=== PATIENT | female | born 1995 | race Caucasian/White ===

== ENCOUNTER 2016-11-26 16:15 | Inpatient (IN) | payer OTHER ==
[~2016-11-26] VITALS: Ht 154.9 cm; Wt 76.9 kg
[~2016-11-26 16:15] MED LIST: ACET500C5 PO
[2016-11-26 16:31] VITALS: Ht 154.9 cm; Wt 76.9 kg
[2016-11-26] MEDS ORDERED: FOLI-49 PO (16:31)
[2016-11-26] MEDS ORDERED: FER325 PO (16:31)
[2016-11-26] MEDS ORDERED: CALC600T11 PO (16:31)
[2016-11-26] MEDS ORDERED: PREN1TAB13 PO (16:31)
[2016-11-26 16:35] VITALS: BP 140/79; PULSE 92; RESP 20
[2016-11-26 17:10] LABS: ADD SCAN DIFF NO
[2016-11-26 17:14] LABS: ADD UMIC YES; URINE BILIRUBIN (Dip) NEGATIVE (NEGATIVE); URINE BLOOD (Dip) NEGATIVE (NEGATIVE); URINE COLOR YELLOW (YELLOW); URINE GLUCOSE (Dip) NEGATIVE (NEGATIVE); URINE KETONES (Dip) TRACE (NEGATIVE); URINE LEUKOCYTE ESTERASE (Dip) TRACE (NEGATIVE); URINE NITRITE (Dip) NEGATIVE (NEGATIVE); URINE TOTAL PROTEIN (Dip) 1+ (NEGATIVE); URINE UROBILINOGEN (Dip) 1.0 E.U./dL (0.1-1.0)
[2016-11-26 17:16] LABS: BASOPHILS % 0.2 % (0.0-2.0); EOSINOPHILS % 0.4 % (0.0-7.0); HEMATOCRIT 27.9 % (37.0-47.0); HEMOGLOBIN 8.7 g/dl (12.0-16.0); LYMPHOCYTES # 1.5 10^3/ul (0.8-2.9); LYMPHOCYTES % 14.2 % (18.0-55.0); MEAN CORPUSCULAR HEMOGLOBIN 22.7 pg (29.0-33.0); MEAN CORPUSCULAR HGB CONC 31.2 g/dl (32.0-37.0); MEAN CORPUSCULAR VOLUME 72.8 fl (72.0-104.0); MEAN PLATELET VOLUME 11.2 fl (7.4-10.4); MONOCYTE # 0.5 10^3/ul (0.3-0.9); MONOCYTES % 4.7 % (0.0-13.0); NEUTROPHIL # 8.1 10^3/ul (1.6-7.5); PLATELET COUNT 131 10^3/UL (140-415); RED BLOOD COUNT 3.83 10^6/ul (4.20-5.40); RED CELL DISTRIBUTION WIDTH 15.6 % (11.5-14.5); WHITE BLOOD COUNT 10.2 10^3/ul (4.8-10.8)
[2016-11-26 17:44] LABS: BACTERIA,URINE MODERATE; MUCUS,URINE MANY; SQUAMOUS EPITHELIAL CELL,UR MANY; URINE RBCS NONE SEEN /HPF (0)
--- NOTE | 2016-11-26 18:05 | RADRPT ---
PROCEDURE: US OB biophysical profile. CLINICAL INDICATION: evaluation, high blood pressure TECHNIQUE: Multiple sonographic images of the pelvis were obtained. The images were reviewed on a PACS workstation. COMPARISON: Obstetrical ultrasound from 07/18/2016 FINDINGS: There is a single viable intrauterine gestation. Cardiac activity is present with 0.46 beats per mi nute. There is a vertex presentation. The placenta is posterior and fundal. There is no evidence of placental abruption. There is an elevated amount of amniotic fluid with an MELI = 24.5 cm. Biophysical profile: movement 2/2 tone 2/2. breathing 2/2 MELI 2/2 Total 05/25 RPTAT: AA . IMPRESSION: Normal biophysical profile. Polyhydramnios with an MELI of 24.5 cm. Physician Kat Date Time Electronically viewed and signed by Physician Kat on 11/26/2016 18:04 /
[2016-11-26 18:37] LABS: ALBUMIN 3.2 g/dl (3.3-4.9); POTASSIUM 4.4 mmol/L (3.5-5.1)
[2016-11-26 18:40] LABS: ALBUMIN/GLOBULIN RATIO 1.1
[2016-11-26 18:46] LABS: BILIRUBIN,INDIRECT 0.1 mg/dl (0-1.1); BILIRUBIN,TOTAL 0.1 mg/dl (0.2-1.3); CALCIUM 8.7 mg/dl (8.4-10.2); CREATININE 0.45 mg/dl (0.44-1.00); TOTAL PROTEIN 6.1 g/dl (6.1-8.1); URIC ACID 3.4 mg/dl (3.1-7.9)
--- NOTE | 2016-11-26 19:10 | TRIAGE ---
OB Triage Datetime Report Generated by CPN: 11/26/2016 19:09 Datetime: 11/26/2016 18:00 Stage of : OB Triage Maternal Assessment Level of Consciousness: Fully Conscious Labor Evaluation Frequency: OCCASIONAL Monitor Mode: External Duration (sec)2399: 60-80 Quality: Mild Resting Tone [place]: Relaxed Heart Rate FHR Baseline Rate: 135 Monitor Mode: External US Variability: Moderate 6-25 bpm Accelerations: 15X15 Decelerations: None Pain Assessment Pain Scale: 0 Pain Presence: None/Denies Pain Goal: 3 Vaginal Exam Membrane Status: Intact Vaginal Bleeding: None Datetime: 11/26/2016 17:00 Stage of : OB Triage Maternal Assessment Level of Consciousness: Fully Conscious Labor Evaluation Frequency: NONE Monitor Mode: External Resting Tone [place]: Relaxed Heart Rate FHR Baseline Rate: 145 Monitor Mode: External US Variability: Moderate 6-25 bpm Accelerations: 15X15 Decelerations: None Pain Assessment Pain Scale: 0 Pain Presence: None/Denies Pain Goal: 3 Vaginal Exam Membrane Status: Intact Vaginal Bleeding: None Datetime: 11/26/2016 16:29 Assessment Type: Triage Maternal Assessment Level of Consciousness: Fully Conscious DTR's/Clonus: DTRs 2+; No Clonus Headache: Denies Blurred Vision: No Respiratory Effort: Unlabored; Regular Rhythm; Equal Expansion Breath Sounds, Left: Clear and Equal Breath Sounds, Right: Clear and Equal Nausea/Vomiting: Denies RUQ Epigastric Pain: Denies Lower Extremities Edema: Bilateral Lower Extremities Degree: 1+ Upper Extremities Edema: None Degree: None Facial Edema: None Fall Risk Assessment History of Falling: (0) No Secondary Diagnosis: (0) No Ambulatory Aid: (0) Bedrest/Nurse Assist IV Therapy: (0) No Gait: (0) Normal/Bedrest/Immobile Mental Status: (0) Oriented to Own Ability Fall Score: 0 Fall Risk Score Definition: No Risk: No action required Datetime: 11/26/2016 16:25 EGA: 36.0 Datetime: 11/26/2016 16:24 Time of Arrival: 11/26/2016 16:10 Arrived By: Ambulatory Arrived From: Dr. Rich Chief Complaint: PT SENT FROM CLINIC FOR EVAL. OF HBP Movement: Present Contractions: Denies/Absent Rupture of Membranes: Denies Vaginal Bleeding: None Vaginal Discharge: Denies Recent Sexual Intercouse: Denies Abdominal Trauma: Not Applicable Patient Complaints: None Time Provider Notified: 11/26/2016 19:00 Provider Notified: GINGER Initial Plan: UA, CBC, CMP, URIC ACID, BPP
[2016-11-26] MEDS: LABETALOL 100 MG TAB PO SCH (21:17)
[2016-11-27 05:56] LABS: ADD SCAN DIFF NO
[2016-11-27 06:22] LABS: ABNORMAL IP MESSAGE 1; BASOPHILS % 0.2 % (0.0-2.0); EOSINOPHILS % 0.2 % (0.0-7.0); HEMATOCRIT 27.3 % (37.0-47.0); HEMOGLOBIN 8.2 g/dl (12.0-16.0); LYMPHOCYTES # 1.6 10^3/ul (0.8-2.9); LYMPHOCYTES % 14.8 % (18.0-55.0); MEAN CORPUSCULAR HEMOGLOBIN 22.2 pg (29.0-33.0); MEAN CORPUSCULAR VOLUME 73.8 fl (72.0-104.0); MEAN PLATELET VOLUME 12.4 fl (7.4-10.4); MONOCYTE # 0.4 10^3/ul (0.3-0.9); MONOCYTES % 3.6 % (0.0-13.0); NEUTROPHIL # 8.4 10^3/ul (1.6-7.5); NUCLEATED RED BLOOD CELLS% 0.2 /100WBC (0.0-0.0); PLATELET COUNT 133 10^3/UL (140-415); RED CELL DISTRIBUTION WIDTH 15.6 % (11.5-14.5); WHITE BLOOD COUNT 10.5 10^3/ul (4.8-10.8)
[2016-11-27 06:28] LABS: ALBUMIN 3.1 g/dl (3.3-4.9)
[2016-11-27 06:29] LABS: POTASSIUM 4.8 mmol/L (3.5-5.1)
[2016-11-27 06:31] LABS: ALBUMIN/GLOBULIN RATIO 1.1; BILIRUBIN,INDIRECT 0.2 mg/dl (0-1.1); BILIRUBIN,TOTAL 0.2 mg/dl (0.2-1.3); CREATININE 0.47 mg/dl (0.44-1.00); TOTAL PROTEIN 5.9 g/dl (6.1-8.1); URIC ACID 3.7 mg/dl (3.1-7.9)
[2016-11-27 06:32] LABS: CALCIUM 8.7 mg/dl (8.4-10.2)
[2016-11-27] MEDS: LABETALOL 100 MG TAB PO SCH ×2 (09:07→21:13)
[2016-11-27] MEDS ORDERED: ACETAMINOPHEN 325 MG TAB PO PRN (18:30)
[2016-11-27] MEDS: LACTATED RINGER'S 1,000 ML IV SCH (20:20)
[2016-11-27 21:11] LABS: COLLECTION PERIOD 24 hrs; SCRET 0.47 mg/dl (0.44-1.00)
--- NOTE | 2016-11-27 21:31 | HP ---
Date/Time of Note Date/Time of Note late entry DATE: 11/26/16 OB - History Hx of Present Free Text/Dictation sent in from clinic for BP of 120/90 at 36 weeks Estimated Due Date: Dec 24, 2016 : 1 Para: 0 Care: Good Care Ultrasounds: Normal mid trimester US Obstetrical Complications: None Medical Complications: None Past Family/Social History * Past Medical, Surgical, Family and Obstetric Histories reviewed from chart. OB Admission Exam Vital Signs Vital Signs Vital Signs Date Time Temp Pulse Resp B/P Pulse Ox O2 Delivery O2 Flow Rate FiO2 11/26/16 16:35 99.6 92 20 140/79 96 Room Air Physical Exam HEENT: WNL Heart: Rhythm Normal Lungs: Clear, Equal Abdomen: WNL Extremities: Normal Reflexes: Normal Last 72 hours Lab Results CBC & BMP 11/26/16 16:50 11/27/16 05:43 Liver Function Test 11/26/16 16:50 11/27/16 05:43 Alanine Aminotransferase (ALT/SGPT) 15 16 Albumin 3.2 L 3.1 L Alkaline Phosphatase 188 H 185 H Aspartate Amino Transf (AST/SGOT) 16 15 Direct Bilirubin 0.00 0.00 Total Protein 6.1 5.9 L OB Assessment/Plan Other Assessment: 36 weeks gestation PIH ( patient has 1 + proteinuria Other plan: obtain 24 hr urine collection for protein and creatinine clearance tian consult ANNE BECERRA MD Nov 27, 2016 21:31
--- NOTE | 2016-11-27 21:36 | PN ---
Date/Time of Note Date/Time of Note DATE: 11/27/16 TIME: 21:31 OB Subjective Subjective Subjective No C/O headache blurred vision or epigastric pain OB Objective Objective Objective VSS P/E:: unchanged BPs are between 140s/80s and 130s/ high 70s labs are the same, still has decreased platelets on admission from triage patient had BPs >160s/90s OB Assessment/Plan Other Assessment: PIH 36.1 weeks gestation Other plan: reconsult perinatologist re: possible delivery ANNE BECERRA MD Nov 27, 2016 21:36
[2016-11-28] MEDS: LACTATED RINGER'S 1,000 ML IV SCH ×2 (04:08→11:20)
[2016-11-28 06:41] LABS: ADD SCAN DIFF NO
[2016-11-28 07:57] LABS: HEMOGLOBIN 8.4 g/dl (12.0-16.0); MEAN CORPUSCULAR HEMOGLOBIN 22.9 pg (29.0-33.0); MEAN CORPUSCULAR HGB CONC 32.1 g/dl (32.0-37.0); MEAN CORPUSCULAR VOLUME 71.3 fl (72.0-104.0); PLATELET COUNT 128 10^3/UL (140-440); RED BLOOD COUNT 3.65 10^6/ul (4.20-5.40); RED CELL DISTRIBUTION WIDTH 17.2 % (11.5-14.5); WHITE BLOOD COUNT 9.5 10^3/ul (4.8-10.8)
[2016-11-28 07:58] LABS: BASOPHILS % 0.2 % (0.0-2.0); EOSINOPHILS % 0.5 % (0.0-7.0); LYMPHOCYTES % 16.7 % (18.0-55.0); MEAN PLATELET VOLUME 11.1 fl (7.4-10.4); MONOCYTES % 4.3 % (0.0-13.0); NEUTROPHILS % 78.3 % (30.0-74.0)
[2016-11-28 07:59] LABS: LYMPHOCYTES # 1.6 10^3/ul (0.8-2.9); MONOCYTE # 0.4 10^3/ul (0.3-0.9); NEUTROPHIL # 7.4 10^3/ul (1.6-7.5)
[2016-11-28] MEDS: LABETALOL 100 MG TAB PO SCH (08:56)
[2016-11-28] MEDS ORDERED: MULTIVIT/MIN/FOLATE/IRON/PREN TAB PO SCH (09:00)
[2016-11-28] MEDS ORDERED: FERROUS SULFATE (EC) 325 MG TAB PO SCH (09:00)
--- NOTE | 2016-11-28 15:16 | DS ---
Date/Time of Note Date/Time of Note DATE: 11/28/16 TIME: 15:15 Obstetrical Discharge Record Final Diagnosis Final Diagnosis: not delivered Other Final Diagnosis PIH at 36 + weeks Complications Preg induced Hypertension Condition on Discharge Physical Assessment Last Vitals: see nurses notes Voiding: Yes Bowel Movement: Yes Breast: Soft, non-tender, Filling Fundus: Other (Gravid ) Abdomen and Incision: soft bs + Gravid Episiotomy: NA Calf Tenderness: No Patient Condition: Good ANNE BECERRA MD Nov 28, 2016 15:16
--- NOTE | 2016-11-28 15:19 | PD.PPDC ---
GED INSTRUCTOR Discharge Instruction Provider Information Physician Information 21 y/o female admitted with PIH at 36 weeks proteinuria remains unknown as well as creatinine clearance(kab problems) Diagnosis Final Diagnosis: PIH at 36 weeks Condition Patient Condition: Good Diet Diet: Resume Regular Diet Activity/Restrictions Activity: Bedrest May Shower Restrictions: No Exercising No Lifting Nothing in the Vagina Follow-up Follow-up with Physician: 3, Day/Days Return to clinic for OB Instructions: Blurried Vision Headache Comment: and zltered mental status amd epigastric pain : refer to hospital immediately ANNE BECERRA MD Nov 28, 2016 15:19
== END 2016-11-28 16:50 | disposition home or self-care (01) | DRG 782 ==
LOC: OBT 16:15 → L-D 16:17 → OBT 19:00 → OBG 19:21
PROVIDERS: ADMIT Obstetrics & Gynecology; ATTEND Obstetrics & Gynecology
DX: O13.3 Gestational [pregnancy-induced] hypertension without significant proteinuria, third trimester (principal); Z3A.36 36 weeks gestation of pregnancy
CPT/HCPCS: 36415; 76818; 80053; 81001; 81003; 82575; 84156; 84560; 85025; G0463; J7120

== ENCOUNTER 2016-11-30 13:11 | Outpatient (CLI) | payer OTHER ==
[~2016-11-30] VITALS: Ht 154.9 cm; Wt 76.9 kg
[~2016-11-30 13:11] MED LIST changes: -ACET500C5 PO; +CALC600T11 PO; +FER325 PO; +FOLI-49 PO; +PREN1TAB13 PO
--- NOTE | 2016-11-30 13:54 | RADRPT ---
PROCEDURE: OB ultrasound for biophysical profile CLINICAL INDICATION: Biophysical profile. . Hypertension TECHNIQUE: Multiple sonographic images of the pelvis were obtained. Transabdominal view of the gr avid uterus are available for review. The images were reviewed on a PACS workstation. COMPARISON: OB ultrasound 11/26/2016 FINDINGS: Single intrauterine gestation. Presentation: cephalic. Placenta: Fundal breathing movement = 2/2 tone = 2/2 motion = 2/2 MELI = 2/2 MELI = 10.4 cm; previously measured 24.4 cm heart rate: 154 beats per minute IMPRESSION: Single intrauterine gestation. Biophysical profile 05/25 MELI = 10.4 cm; previously measured 24.4 cm RPTAT: AADD .Alexandro Marcial MD, Date Time Electronically viewed and signed by .Alexandro Marcial MD, on 11/30/2016 13:54 .B/
[2016-11-30 14:04] VITALS: Ht 154.9 cm; Wt 76.9 kg
[2016-11-30 14:05] VITALS: BP 118/69; PULSE 80; RESP 18
[2016-11-30 14:07] LABS: BASOPHILS % 0.3 % (0.0-2.0); EOSINOPHILS % 0.4 % (0.0-7.0); HEMATOCRIT 27.2 % (37.0-47.0); HEMOGLOBIN 8.9 g/dl (12.0-16.0); LYMPHOCYTES # 1.2 10^3/ul (0.8-2.9); LYMPHOCYTES % 12.8 % (18.0-55.0); MEAN CORPUSCULAR HEMOGLOBIN 23.2 pg (29.0-33.0); MEAN CORPUSCULAR HGB CONC 32.5 g/dl (32.0-37.0); MEAN CORPUSCULAR VOLUME 71.4 fl (72.0-104.0); MEAN PLATELET VOLUME 9.4 fl (7.4-10.4); MONOCYTE # 0.5 10^3/ul (0.3-0.9); MONOCYTES % 4.7 % (0.0-13.0); NEUTROPHIL # 7.8 10^3/ul (1.6-7.5); NEUTROPHILS % 81.8 % (30.0-74.0); PLATELET COUNT 133 10^3/UL (140-440); RED BLOOD COUNT 3.81 10^6/ul (4.20-5.40); RED CELL DISTRIBUTION WIDTH 17.5 % (11.5-14.5); UNCORRECTED WBC 9.6 10^3/ul (4.8-10.8); WHITE BLOOD COUNT 9.6 10^3/ul (4.8-10.8)
[2016-11-30 14:08] LABS: ADD UMIC YES; URINE BILIRUBIN (Dip) 1+ (NEGATIVE); URINE BLOOD (Dip) NEGATIVE (NEGATIVE); URINE COLOR YELLOW (YELLOW); URINE GLUCOSE (Dip) NEGATIVE (NEGATIVE); URINE KETONES (Dip) 15 (NEGATIVE); URINE LEUKOCYTE ESTERASE (Dip) NEGATIVE (NEGATIVE); URINE NITRITE (Dip) NEGATIVE (NEGATIVE); URINE TOTAL PROTEIN (Dip) 1+ (NEGATIVE); URINE UROBILINOGEN (Dip) 1.0 E.U./dL (0.1-1.0)
[2016-11-30 14:09] LABS: CONDITION 1; LH ANALYZER COMMENTS 1; SUSPECT 1
[2016-11-30 14:17] LABS: INR 0.93; PROTIME 12.5 Sec (12.2-14.2)
[2016-11-30 14:18] LABS: ALBUMIN 2.9 g/dl (3.3-4.9); PARTIAL THROMBOPLASTIN TIME 25.2 Sec (25.0-35.0); POTASSIUM 3.9 mmol/L (3.5-5.1)
[2016-11-30 14:20] LABS: CREATININE 0.51 mg/dl (0.44-1.00)
[2016-11-30 14:21] LABS: ALBUMIN/GLOBULIN RATIO 1.03; BILIRUBIN,INDIRECT 0.1 mg/dl (0-1.1); BILIRUBIN,TOTAL 0.1 mg/dl (0.2-1.3); TOTAL PROTEIN 5.7 g/dl (6.1-8.1); URIC ACID 3.7 mg/dl (3.1-7.9)
[2016-11-30 14:22] LABS: CALCIUM 8.6 mg/dl (8.4-10.2)
[2016-11-30 14:29] LABS: MUCUS,URINE MANY; SQUAMOUS EPITHELIAL CELL,UR MODERATE; URINE RBCS NONE SEEN /HPF (0)
[2016-11-30 14:32] LABS: ICTOTEST NEGATIVE (NEGATIVE)
--- NOTE | 2016-11-30 15:12 | QN ---
Documentation Comment 21 y/o female P0 seen in triage for F/U PIH at 36 + weeks patient is on Labetalol All labs NL: PLT: unchanged will repeat labs in 3 days and possibly proceed with induction ANNE BECERRA MD Nov 30, 2016 15:12
== END 2016-11-30 15:15 | disposition home or self-care (01) ==
LOC: OBT 13:11 → L-D 13:12 → OBT 15:15
PROVIDERS: ATTEND Obstetrics & Gynecology
DX: O13.3 Gestational [pregnancy-induced] hypertension without significant proteinuria, third trimester (principal); Z3A.36 36 weeks gestation of pregnancy
CPT/HCPCS: 36415; 76818; 80053; 81001; 84560; 85025; 85610; 85730; Z7500; 81003; G0463

== ENCOUNTER 2016-12-03 12:31 | Inpatient (IN) | payer OTHER ==
[~2016-12-03] VITALS: Ht 154.9 cm; Wt 78.5 kg
[2016-12-03] MEDS ORDERED: LABE200T25 PO (13:09)
[2016-12-03 13:11] VITALS: BP 138/87; PULSE 100; RESP 18
[2016-12-03 13:13] VITALS: Ht 154.9 cm; Wt 78.5 kg
[2016-12-03 14:01] LABS: BASOPHILS % 0.3 % (0.0-2.0); EOSINOPHILS % 0.4 % (0.0-7.0); HEMATOCRIT 29.3 % (37.0-47.0); HEMOGLOBIN 9.3 g/dl (12.0-16.0); LYMPHOCYTES # 1.3 10^3/ul (0.8-2.9); LYMPHOCYTES % 13.6 % (18.0-55.0); MEAN CORPUSCULAR HEMOGLOBIN 22.8 pg (29.0-33.0); MEAN CORPUSCULAR HGB CONC 31.9 g/dl (32.0-37.0); MEAN CORPUSCULAR VOLUME 71.5 fl (72.0-104.0); MEAN PLATELET VOLUME 10.1 fl (7.4-10.4); MONOCYTE # 0.4 10^3/ul (0.3-0.9); MONOCYTES % 4.4 % (0.0-13.0); NEUTROPHIL # 8.1 10^3/ul (1.6-7.5); NEUTROPHILS % 81.3 % (30.0-74.0); PLATELET COUNT 154 10^3/UL (140-440); RED BLOOD COUNT 4.09 10^6/ul (4.20-5.40); RED CELL DISTRIBUTION WIDTH 18.4 % (11.5-14.5); UNCORRECTED WBC 9.9 10^3/ul (4.8-10.8); WHITE BLOOD COUNT 9.9 10^3/ul (4.8-10.8)
[2016-12-03 14:02] LABS: ADD UMIC YES; URINE BILIRUBIN (Dip) NEGATIVE (NEGATIVE); URINE BLOOD (Dip) NEGATIVE (NEGATIVE); URINE COLOR YELLOW (YELLOW); URINE GLUCOSE (Dip) NEGATIVE (NEGATIVE); URINE KETONES (Dip) NEGATIVE (NEGATIVE); URINE LEUKOCYTE ESTERASE (Dip) NEGATIVE (NEGATIVE); URINE NITRITE (Dip) NEGATIVE (NEGATIVE); URINE TOTAL PROTEIN (Dip) 1+ (NEGATIVE); URINE UROBILINOGEN (Dip) 0.2 E.U./dL (0.1-1.0)
[2016-12-03 14:07] LABS: CONDITION 1; LH ANALYZER COMMENTS 1
[2016-12-03 14:10] LABS: ALBUMIN 3.2 g/dl (3.3-4.9)
[2016-12-03 14:11] LABS: POTASSIUM 4.3 mmol/L (3.5-5.1)
[2016-12-03 14:13] LABS: BACTERIA,URINE FEW; BILIRUBIN,INDIRECT 0.3 mg/dl (0-1.1); BILIRUBIN,TOTAL 0.3 mg/dl (0.2-1.3); CREATININE 0.45 mg/dl (0.44-1.00); MUCUS,URINE FEW; TOTAL PROTEIN 6.2 g/dl (6.1-8.1); URINE RBCS 0-2 /HPF (0)
[2016-12-03 14:14] LABS: CALCIUM 8.8 mg/dl (8.4-10.2); URIC ACID 3.6 mg/dl (3.1-7.9)
[2016-12-03 14:16] LABS: ALBUMIN/GLOBULIN RATIO 1.06
--- NOTE | 2016-12-03 14:18 | RADRPT ---
PROCEDURE: US OB biophysical profile. CLINICAL INDICATION: decreased movements, hypertension TECHNIQUE: Multiple sonographic images of the pelvis were obtained. The images were reviewed on a PACS workstation. COMPARISON: 11/30/2016 FINDINGS: There is a single viable intrauterine gestation. Cardiac activity is present with 142 beats per min [place]. There is a vertex presentation. The placenta is fundal. There is no evidence of placental abruption. There is a normal amount of amniotic fluid with an MELI = 10.8 cm. Biophysical profile: movement 2/2 tone 2/2. breathing 2/2 MELI 2/2 Total 05/25 RPTAT: AA . IMPRESSION: Normal biophysical profile. . .Diego Aguilera MD, MD Date Time Electronically viewed and signed by .Diego Aguilera MD, MD on 12/03/2016 14:17 .S/
[2016-12-03 14:23] LABS: INR 1.01; PARTIAL THROMBOPLASTIN TIME 24.7 Sec (25.0-35.0); PROTIME 13.3 Sec (12.2-14.2)
[2016-12-03] MEDS ORDERED: CARBOPROST 250 MCG INJ IM PRN (15:30)
[2016-12-03] MEDS ORDERED: IBUPROFEN 600 MG TAB PO PRN (15:30)
[2016-12-03] MEDS ORDERED: LACTATED RINGER'S 1,000 ML IV PRN (15:30)
[2016-12-03] MEDS ORDERED: OXYTOCIN 30 UNITS/LR 500 ML IV SCH ×2 (15:30)
[2016-12-03] MEDS ORDERED: OXYTOCIN 30 UNITS/LR 500 ML IV PRN (15:30)
[2016-12-03] MEDS ORDERED: MISOPROSTOL 200 MCG TAB PR PRN (15:30)
[2016-12-03] MEDS ORDERED: METHYLERGONOVINE 0.2 MG INJ IM PRN (15:30)
[2016-12-03] MEDS ORDERED: LIDOCAINE 1% (MPF) 30 ML INJ INJ PRN (15:30)
--- NOTE | 2016-12-03 18:25 | HP ---
Date/Time of Note Date/Time of Note DATE: 12/03/16 TIME: 18:19 OB - History Hx of Present Free Text/Dictation admitted for induction of the labor at 37 weeks per perinatologist Estimated Due Date: Dec 24, 2016 : 1 Para: 0 Care: Good Care Ultrasounds: Normal mid trimester US Obstetrical Complications: None Medical Complications: None Past Family/Social History * Past Medical, Surgical, Family and Obstetric Histories reviewed from chart. Rubella: immune RPR/VDRL: Negative GBS Status: Negative HBsAG: Negative OB Admission Exam Vital Signs Vital Signs Vital Signs Date Time Temp Pulse Resp B/P Pulse Ox O2 Delivery O2 Flow Rate FiO2 12/03/16 13:11 98.6 100 18 138/87 Room Air Physical Exam HEENT: WNL Heart: Rhythm Normal Lungs: Clear, Equal Abdomen: WNL Extremities: Normal Reflexes: Normal Cervical Dilatation: None Effacement: 0% Station: -3 Membranes: Intact Accelerations: Accelerations Present Decelerations: No Decelerations Varibility: Moderate Contractions on Admission: None Last 72 hours Lab Results CBC & BMP 12/03/16 13:35 Liver Function Test 12/03/16 13:35 Alanine Aminotransferase (ALT/SGPT) 22 Albumin 3.2 L Alkaline Phosphatase 186 H Aspartate Amino Transf (AST/SGOT) 15 Direct Bilirubin 0.00 Total Protein 6.2 OB Assessment/Plan Other Assessment: mild PIH at 37 weeks Induction Method: per Misoprostol Protocol ANNE BECERRA MD Dec 03, 2016 18:25
[2016-12-03] MEDS ORDERED: DINOPROSTONE 10 MG VAG SUPP VAG ONE (19:00)
[2016-12-03] MEDS: LACTATED RINGER'S 1,000 ML IV SCH (20:20)
[2016-12-03] MEDS ORDERED: MINERAL OIL LIGHT 10 ML VIAL TOP PRN (21:30)
[2016-12-04] MEDS: LACTATED RINGER'S 1,000 ML IV SCH ×4 (01:16→21:54)
[2016-12-04] MEDS: BUTORPHANOL 2 MG INJ IV PRN ×2 (05:28→16:58)
[2016-12-05] MEDS: OXYTOCIN 30 UNITS/LR 500 ML IV SCH ×2 (02:55→21:17)
[2016-12-05] MEDS ORDERED: FENTAnyl 2MCG/ML-ROPIV 0.2% 100 ML ONE (05:34)
[2016-12-05] MEDS: LACTATED RINGER'S 1,000 ML IV SCH ×5 (05:48→19:00)
[2016-12-05] MEDS ORDERED: NALOXONE (0.4 MG/ML) INJ IV PRN (10:00)
[2016-12-05] MEDS ORDERED: ONDANSETRON 4 MG INJ IV PRN (10:00)
[2016-12-05] MEDS ORDERED: DINOPROSTONE 10 MG VAG SUPP VAG ONE (10:00)
[2016-12-05] MEDS ORDERED: DIPHENHYDRAMINE 50 MG INJ IV PRN (10:00)
[2016-12-05] MEDS: FENTAnyl 2MCG/ML-ROPIV 0.2% 100 ML BAG EPI SCH ×2 (12:49→19:46)
--- NOTE | 2016-12-05 23:21 | PN ---
Date/Time of Note Date/Time of Note late entry DATE: 12/04/16 OB Subjective Subjective Subjective No C/O headache , BV or epigastric pain OB Objective Objective Objective BPs stable or slightly elevated HEENT: WNL Heart: Rhythm Normal Lungs: Clear, Equal Abdomen: WNL Extremities: Normal Reflexes: Normal Cervical Dilatation: 1cm Effacement: 25% Station: -3 Membranes: Intact OB Assessment/Plan Other Assessment: [facility] at37 + weeks Induction Method: per Misoprostol Protocol ANNE BECERRA MD Dec 05, 2016 23:21
--- NOTE | 2016-12-05 23:22 | PN ---
Date/Time of Note Date/Time of Note DATE: 12/05/16 TIME: 23:21 OB Subjective Subjective Subjective No C/O H/A B/V or epigastric pain OB Objective Objective Objective VSS P/E unchanged HEENT: WNL Heart: Rhythm Normal Lungs: Clear, Equal Abdomen: WNL Extremities: Normal Reflexes: Normal Cervical Dilatation: 2cm Effacement: 50% Station: -2 Membranes: Intact OB Assessment/Plan Other Assessment: PIH at 37 + weeks Induction Method: per Pitocin Protocol ANNE BECERRA MD Dec 05, 2016 23:22
[2016-12-06] MEDS ORDERED: MINERAL OIL LIGHT 10 ML VIAL TOP ONE (00:23)
[2016-12-06] MEDS: FENTAnyl 2MCG/ML-ROPIV 0.2% 100 ML BAG EPI SCH (00:47)
--- NOTE | 2016-12-06 03:00 | LDN ---
Date/Time of Note Date/Time of Note DATE: 12/06/16 TIME: 02:56 Delivery Summary of a viable over intact perineum Placenta Delivered: Spontaneously, Intact & Complete Meconium: none Perineum intact?: Yes Perineal laceration repair: 2 X small hymenal lacerations were repaired with 3 0 Vicryl Anesthesia type: Epidural Estimated blood loss: 200 Sponge & Needle done & correct: Yes All needle counts correct: Yes Any foreign bodies felt in the: No Problems: Delivery Information Sex Infant Sex: female Apgars 1 Minute: 8 5 Minute: 9 Suctioning Nose & mouth suctioned at tian: Yes Delee suction performed: No Umbilical Cord Umbilical cord with: 3 Vessels Cord presentations: no nuchal cord Cord Blood was obtained: Yes Mother & Baby Disposition Disposition Mom & Baby to Maternity; Good: Yes (mother and baby were recovered in good condition ) Mom transferred to: Other (maternity) Baby to NICU: No ANNE BECERRA MD Dec 06, 2016 02:59
[2016-12-06 04:45] VITALS: BP 129/79; PULSE 83; RESP 20
[2016-12-06] MEDS: LACTATED RINGER'S 1,000 ML IV* SCH ×2 (05:13→07:19)
[2016-12-06 05:15] VITALS: BP 130/79; PULSE 76; RESP 20
[2016-12-06] MEDS ORDERED: OXYTOCIN 30 UNITS/LR 500 ML IV PRN (05:30)
[2016-12-06] MEDS ORDERED: ACETAMINOPHEN/CODEINE #3 TAB PO PRN ×2 (05:30)
[2016-12-06] MEDS ORDERED: METHYLERGONOVINE 0.2 MG INJ IM PRN (05:30)
[2016-12-06] MEDS ORDERED: DIBUCAINE 1% 30 GM OINT PR PRN (05:30)
[2016-12-06] MEDS ORDERED: LANOLIN 7 GM TUBE TOP PRN (05:30)
[2016-12-06] MEDS ORDERED: MISOPROSTOL 200 MCG TAB PR PRN (05:30)
[2016-12-06] MEDS ORDERED: WITCH HAZEL/GLYCERIN PAD PR PRN (05:30)
[2016-12-06] MEDS ORDERED: BENZOCAINE 20% 56 ML SPRAY TOP PRN (05:30)
[2016-12-06] MEDS ORDERED: CARBOPROST 250 MCG INJ IM PRN (05:30)
[2016-12-06] MEDS ORDERED: ZOLPIDEM 5 MG TAB PO PRN (05:30)
[2016-12-06] MEDS: IBUPROFEN 600 MG TAB PO SCH ×4 (05:51→23:52)
[2016-12-06] MEDS: CEPHALEXIN 500 MG CAP PO SCH ×4 (06:30→23:52)
[2016-12-06 07:00] VITALS: BP 131/75; PULSE 75; RESP 20
[2016-12-06 07:40] VITALS: BP 130/71; PULSE 70; RESP 16
[2016-12-06] MEDS: SENNA/DOCUSATE NA (8.6MG/50MG) TAB PO SCH ×2 (09:11→21:44)
[2016-12-06] MEDS: MAGNESIUM HYDROXIDE 30ML CUP PO SCH ×2 (09:11→21:44)
[2016-12-06 15:30] VITALS: BP 109/70; PULSE 60; RESP 16
[2016-12-06 20:05] VITALS: BP 126/84; PULSE 75; RESP 18
[2016-12-07 00:10] VITALS: BP 122/76; PULSE 70; RESP 18
[2016-12-07 04:15] VITALS: BP 121/80; PULSE 75; RESP 17
[2016-12-07] MEDS: CEPHALEXIN 500 MG CAP PO SCH ×3 (05:16→18:11)
[2016-12-07] MEDS: IBUPROFEN 600 MG TAB PO SCH ×3 (05:16→18:11)
[2016-12-07 07:34] LABS: BASOPHILS % 0.3 % (0.0-2.0); EOSINOPHILS # 0.1 10^3/ul (0.0-0.5); EOSINOPHILS % 0.8 % (0.0-7.0); HEMATOCRIT 24.8 % (37.0-47.0); HEMOGLOBIN 8.1 g/dl (12.0-16.0); LYMPHOCYTES % 20.7 % (18.0-55.0); MEAN CORPUSCULAR HEMOGLOBIN 23.1 pg (29.0-33.0); MEAN CORPUSCULAR HGB CONC 32.6 g/dl (32.0-37.0); MEAN CORPUSCULAR VOLUME 70.8 fl (72.0-104.0); MEAN PLATELET VOLUME 10.8 fl (7.4-10.4); MONOCYTE # 0.4 10^3/ul (0.3-0.9); MONOCYTES % 4.6 % (0.0-13.0); NEUTROPHIL # 7.2 10^3/ul (1.6-7.5); NEUTROPHILS % 73.6 % (30.0-74.0); PLATELET COUNT 117 10^3/UL (140-440); RED CELL DISTRIBUTION WIDTH 18.4 % (11.5-14.5); UNCORRECTED WBC 9.8 10^3/ul (4.8-10.8); WHITE BLOOD COUNT 9.8 10^3/ul (4.8-10.8)
[2016-12-07 07:39] LABS: CONDITION 1; SUSPECT 1
[2016-12-07 07:40] LABS: LH ANALYZER COMMENTS 1
[2016-12-07 08:00] VITALS: BP 131/81; PULSE 70; RESP 20
[2016-12-07] MEDS: MAGNESIUM HYDROXIDE 30ML CUP PO SCH ×2 (09:00→21:00)
[2016-12-07] MEDS: SENNA/DOCUSATE NA (8.6MG/50MG) TAB PO SCH ×2 (09:00→21:00)
--- NOTE | 2016-12-07 15:58 | DS ---
Date/Time of Note Date/Time of Note home next day DATE: 12/07/16 TIME: 15:57 Obstetrical Discharge Record Final Diagnosis Final Diagnosis: Term delivered Other Final Diagnosis S/P vaginal delivery Vaginal Delivery Obstetrical Delivery: Spontaneous, Laceration, Repaired Complications Augmentation: Yes Induction: Yes Condition on Discharge Physical Assessment Last Vitals: see nurses notes Voiding: Yes Bowel Movement: Yes Breast: Soft, non-tender, Filling Fundus: Firm Abdomen and Incision: soft bs + Episiotomy: NA Calf Tenderness: No Patient Condition: Good ANNE BECERRA MD Dec 07, 2016 15:58
--- NOTE | 2016-12-07 15:59 | PD.PPDC ---
FINANCIAL SOLUTIONS ADVISOR Discharge Instruction Provider Information Physician Information 31 y/o female had induction of the labor because of PIH and had vaginal delivery Condition Patient Condition: Good Diet Diet: Resume Regular Diet Activity/Restrictions Activity: Normal Activity May Shower Restrictions: Nothing in the Vagina Follow-up Follow-up with Physician: 4, Week/Weeks Return to clinic for OB Instructions: Breast Tenderness Depression ANNE BECERRA MD Dec 07, 2016 15:59
[2016-12-07 16:00] VITALS: BP 140/80; PULSE 96; RESP 17
[2016-12-07] MEDS ORDERED: IBUP-1542 PO (16:00)
[2016-12-07 19:30] VITALS: BP 139/77; PULSE 69; RESP 18
[2016-12-08] MEDS: CEPHALEXIN 500 MG CAP PO SCH ×3 (00:16→12:52)
[2016-12-08] MEDS: IBUPROFEN 600 MG TAB PO SCH ×3 (00:16→12:52)
[2016-12-08 04:00] VITALS: BP 122/67; PULSE 62; RESP 18
[2016-12-08 08:55] VITALS: BP 135/82; PULSE 69; RESP 20
[2016-12-08] MEDS ORDERED: DIPHTH/TET/ACEL PERTUSS (ADULT) 0.5 ML VIAL IM* ONE (09:00)
[2016-12-08] MEDS ORDERED: MEASLES,MUMPS,RUBELLA VACCINE INJ SC* ONE (09:00)
[2016-12-08] MEDS ORDERED: VARICELLA VACCINE LIVE/PF 1,350 UNIT/0.5 ML ML SC* ONE (09:00)
[2016-12-08] MEDS: SENNA/DOCUSATE NA (8.6MG/50MG) TAB PO SCH (09:00)
[2016-12-08] MEDS: MAGNESIUM HYDROXIDE 30ML CUP PO SCH (09:00)
== END 2016-12-08 14:00 | disposition home or self-care (01) | DRG 989 ==
LOC: L-D 12:31 → OBT 12:31 → L-D 16:30 → OBT 16:30 → L-D 12-04 12:00 → PP1 12-06 04:57
PROVIDERS: ADMIT Obstetrics & Gynecology; ATTEND Obstetrics & Gynecology
PROC: 10E0XZZ Delivery of Products of Conception, External Approach (ICD-10-PCS; principal; 2016-12-06)
PROC: 0UQKXZZ Repair Hymen, External Approach (ICD-10-PCS; 2016-12-06)
DX: O70.0 First degree perineal laceration during delivery (principal); Z37.0 Single live birth; E66.01 Morbid (severe) obesity due to excess calories; O99.214 Obesity complicating childbirth; Z68.32 Body mass index [BMI] 32.0-32.9, adult; Z3A.37 37 weeks gestation of pregnancy
CPT/HCPCS: 62319; 76818; 80053; 81001; 81003; 84560; 85025; 85384; 85610; 85730; 86592; 86850; 86900; 86901; 86920; 87340; 90715; 90716; G0463; J2405; J2590; J3010; J7120

== ENCOUNTER 2017-09-02 20:29 | Emergency (ER) | payer MEDICAID, OTHER ==
[~2017-09-02] VITALS: Ht 157.5 cm; Wt 77.6 kg
[~2017-09-02 20:29] MED LIST changes: -CALC600T11 PO; +CALC600T24 PO; +IBUP-1542 PO; +LABE200T25 PO
[2017-09-02 20:33] VITALS: Ht 157.5 cm; Wt 77.6 kg
--- NOTE | 2017-09-02 22:34 | ERD ---
ER Documentation Chief Complaint Chief Complaint BIB SELF C/O MID STERNAL CHEST PAIN X 1 WEEK. HPI 22-year-old female presents here in emergency department for complaints of chest pain that started 1 week ago, has been having on and off chest pain, started again today. Patient describes the pain as throbbing pain, 6/10 scale, worse upon taking a deep breath. Patient denies any cough shortness breath or wheezing. ROS All systems reviewed and are negative except as per history of present illness. Medications Home Meds Active Scripts Ibuprofen* (Ibuprofen*) 600 Mg Tablet, 600 MG PO Q6, #20 TAB 1 Refill Prov:ANNE BECERRA MD 12/07/16 Reported Medications Labetalol Hcl* (Labetalol Hcl*) 200 Mg Tablet, 200 MG PO BID, TAB 12/03/16 Folic Acid* (Folic Acid*) 1 Mg Tablet, 1 MG PO DAILY, TAB 11/26/16 Calcium Carbonate* (Calcium Carbonate*) 600 MG Ca Tab, 600 MG PO DAILY, TAB 11/26/16 Ferrous Sulfate* (Ferrous Sulfate*) 325 Mg Tabec, 325 MG PO DAILY, TAB 11/26/16 Pnv95/Ferrous Fumarate/FA ( Vitamins Tablet) 1 Each Tablet, 1 EACH PO DAILY, TAB 11/26/16 Allergies Allergies: Coded Allergies: No Known Allergy (Unverified , 11/30/16) PMhx/Soc Medical and Surgical Hx: pt denies Medical Hx, pt denies Surgical Hx Hx Alcohol Use: No Hx Substance Use: No Hx Tobacco Use: No Smoking Status: Never smoker FmHx Family History: No coronary disease, No diabetes, No other Physical Exam Vitals Vital Signs Date Time Temp Pulse Resp B/P Pulse Ox O2 Delivery O2 Flow Rate FiO2 09/02/17 20:33 99.3 75 20 142/83 99 Physical Exam GENERAL: The patient is well developed and appropriate for usual state of health, in no apparent distress. CHEST: Clear to auscultation bilaterally. There are no rales, wheezes or rhonchi. Tenderness on palpation in mid chest wall. HEART: Regular rate and rhythm. No murmurs, clicks, rubs or gallops. No S3 or S4. ABDOMEN: Soft, nontender and nondistended. Good bowel sounds. No rebound or guarding. No gross peritonitis. No gross organomegaly or masses. No Richardson sign or McBurney point tenderness. BACK: No midline or flank tenderness. EXTREMITIES: Equal pulses bilaterally. There is no peripheral clubbing, cyanosis or edema. No focal swelling or erythema. Full range of motion. Grossly neurovascularly intact. NEURO: Alert and oriented. Cranial nerves 2-12 intact. Motor strength in all 4 extremities with 5/5 strength. Sensation grossly intact. Normal speech and gait. SKIN: There is no apparent rash or petechia. The skin is warm and dry. HEMATOLOGIC AND LYMPHATIC: There is no evidence of excessive bruising or lymphedema. No gross cervical, axillary, or inguinal lymphadenopathy. Results 24 hrs EKG was done, read by me and is normal sinus rhythm at a rate of 81, normal axis , there is no ST changes or changes in the EKG that indicates any cardiac emergencies at this time. Patient's EKG was also reviewed by Dr. Brar. Impression: no acute findings on EKG PROCEDURE: XR Chest. CLINICAL INDICATION: CHEST PAIN TECHNIQUE: Single frontal view of the chest was obtained COMPARISON: None FINDINGS: The heart and mediastinum are within normal limits. The lungs are clear. There is no pleural effusion or pneumothorax. The osseous structures are unremarkable. IMPRESSION: 1. No acute cardiopulmonary disease. RPTAT:AAJJ Physician [employer] Date Time Electronically viewed and signed by Physician [employer] on 09/02/2017 22:46 QL/ CC: EFFIE NIEVES CYBER ANALYST Procedures/MDM Medical Decision Making: Symptoms most likely is consistent with chest wall strain. There is low suspicion for cardiopulmonary emergencies at this time. Patient has low risk factors. EKG is normal, there is no changes in the EKG that indicates cardiac emergencies. Chest X-ray does not show cardiopulmonary emergencies at this time. There is low suspicion for aortic aneurysm, myocardial infarction, pneumothorax, pleural effusion, pulmonary embolism, or any other cardiopulmonary emergencies at this time. Patient is given prescription for ibuprofen for [id number] pain, tramadol for severe pain, is advised to follow-up with 3 days for reevaluation of symptoms. Patient is advised to return to emergency department for any worsening symptoms. Dispostion: Home. Stable Disclaimer: Inadvertent spelling and grammatical errors are likely due to EHR/ dictation software use and do not reflect on the overall quality of patient care. Also, please note that the electronic time recorded on this note does not necessarily reflect the actual time of the patient encounter. Departure Diagnosis: Primary Impression: Chest wall muscle strain Encounter type: initial encounter Qualified Code: S29.011A - Muscle strain of chest wall, initial encounter Condition: Stable Patient Instructions: Chest Wall Pain, Costochondritis (/Toddler) EFFIE NIEVES NP Sep 02, 2017 22:34
--- NOTE | 2017-09-02 22:46 | RADRPT ---
PROCEDURE: XR Chest. CLINICAL INDICATION: CHEST PAIN TECHNIQUE: Single frontal view of the chest was obtained COMPARISON: None FINDINGS: The heart and mediastinum are within normal limits. The lungs are clear. There is no pleural effusion or pneumothorax. The osseous structures are unremarkable. IMPRESSION: 1. No acute cardiopulmonary disease. RPTAT:AAJJ Physician [employer] Date Time Electronically viewed and signed by Cindy Pearce Physician on 09/02/2017 22:46 QL/
[2017-09-02] MEDS ORDERED: IBUP-1542 PO (23:13)
[2017-09-02] MEDS ORDERED: TRAM50TA2 PO (23:13)
== END 2017-09-02 23:36 | disposition home or self-care (01) ==
LOC: FTE 20:29
DX: S29.011A Strain of muscle and tendon of front wall of thorax, initial encounter (principal); R07.2 Precordial pain; X58.XXXA Exposure to other specified factors, initial encounter; Y92.9 Unspecified place or not applicable
CPT/HCPCS: 71010; Z7502

== ENCOUNTER 2018-12-12 17:06 | Emergency (ER) | payer MEDICAID ==
[~2018-12-12] VITALS: Ht 154.9 cm; Wt 80.0 kg
[~2018-12-12 17:06] MED LIST changes: +TRAM50TA2 PO
[2018-12-12 17:57] VITALS: Ht 154.9 cm; Wt 80.0 kg
[2018-12-12] MEDS ORDERED: AMOX500C2 PO (20:23)
[2018-12-12] MEDS ORDERED: IBUP800T48 PO (20:23)
[2018-12-12] MEDS ORDERED: AMOXICILLIN 500 MG CAP PO ONE (20:30)
[2018-12-12] MEDS ORDERED: IBUPROFEN 600 MG TAB PO ONE (20:30)
[2018-12-12 20:40] VITALS: BP 135/91; PULSE 108; RESP 22
--- NOTE | 2018-12-13 00:37 | ERD ---
ER Documentation Chief Complaint Chief Complaint BILATERAL EAR PAIN, THROAT PAIN X TODAY HPI 23-year-old female presents to the ED complaining of bilateral ear pain, she rates it moderate to severe. Admits to congestion and sore throat that started today. Denies any fevers. Denies any medications. Cough ROS All systems reviewed and are negative except as per history of present illness. Medications Home Meds Active Scripts Ibuprofen* (Motrin*) 800 Mg Tab, 800 MG PO Q6H PRN for PAIN AND OR ELEVATED TEMP, #30 TAB Prov:STEPHEN NATION PA-C 12/12/18 Amoxicillin* (Amoxicillin*) 500 Mg Cap, 500 MG PO TID for 10 Days, CAP Prov:STEPHEN NATION PA-C 12/12/18 Tramadol HCl (Tramadol HCl) 50 Mg Tablet, 50 MG PO Q6 PRN for SEVERE PAIN LEVEL 7-10, #20 TAB Prov:EFFIE NIEVES NP 09/02/17 Ibuprofen* (Motrin*) 600 Mg Tab, 600 MG PO Q6H PRN for PAIN AND OR ELEVATED TEMP, #30 TAB Prov:EFFIE NIEVES NP 09/02/17 Ibuprofen* (Ibuprofen*) 600 Mg Tablet, 600 MG PO Q6, #20 TAB 1 Refill Prov:ANNE BECERRA MD 12/07/16 Reported Medications Labetalol Hcl* (Labetalol Hcl*) 200 Mg Tablet, 200 MG PO BID, TAB 12/03/16 Folic Acid* (Folic Acid*) 1 Mg Tablet, 1 MG PO DAILY, TAB 11/26/16 Calcium Carbonate* (Calcium Carbonate*) 600 MG Ca Tab, 600 MG PO DAILY, TAB 11/26/16 Ferrous Sulfate* (Ferrous Sulfate*) 325 Mg Tabec, 325 MG PO DAILY, TAB 11/26/16 Pnv95/Ferrous Fumarate/FA ( Vitamins Tablet) 1 Each Tablet, 1 EACH PO DAILY, TAB 11/26/16 Allergies Allergies: Coded Allergies: No Known Allergy (Unverified , 11/30/16) PMhx/Soc Medical and Surgical Hx: pt denies Medical Hx, pt denies Surgical Hx Hx Alcohol Use: No Hx Substance Use: No Hx Tobacco Use: No Smoking Status: Never smoker Physical Exam Vitals Vital Signs Date Temp Pulse Resp B/P (MAP) Pulse Ox O2 O2 Flow FiO2 Time Delivery Rate 12/12/18 97.9 108 22 135/91 98 Room Air 20:40 (106) 12/12/18 99.1 93 18 131/92 98 17:57 (105) Physical Exam Const: No acute distress Head: Atraumatic Eyes: Normal Conjunctiva ENT: Normal External Ears, Nose and Mouth. Bilateral TMs are bulging with effusion Neck: Full range of motion. No meningismus. Resp: Clear to auscultation bilaterally Cardio: Regular rate and rhythm, no murmurs Abd: Soft, non tender, non distended. Normal bowel sounds Skin: No petechiae or rashes Back: No midline or flank tenderness Ext: No cyanosis, or edema Neur: Awake and alert Psych: Normal Mood and Affect Results 24 hrs Current Medications Medications Dose Sig/Froy Start Time Status Last (Trade) Ordered Route PRN Stop Time Admin Dose Reason Admin Amoxicillin 500 mg ONCE ONCE 12/12/18 DC 12/12/18 PO 20:30 20:27 (Amoxicillin) 12/12/18 20:31 Ibuprofen 600 mg ONCE ONCE 12/12/18 DC 12/12/18 (Motrin) PO 20:30 20:28 12/12/18 20:31 Procedures/MDM This is a 23-year-old female presenting to the ED complaining of bilateral ear pain. Signs is consistent with otitis media. Patient was given prescription for amoxicillin. Patient first dose was given in the ED.. There is no evidence of ruptured to make membrane, mastoiditis. Patient afebrile and stable to be discharged home with return precautions. She understands agrees this plan Departure Diagnosis: Primary Impression: Otitis media Condition: Stable Patient Instructions: Otitis Media, Abx Tx (Adult) Additional Instructions: FOLLOW UP WITH YOUR PRIMARY CARE PHYSICIAN TOMORROW.Return to this facility if you are not improving as expected. Take all medicines as directed. Return to this facility if you are not improving as expected. STEPHEN NATION PA-C Dec 13, 2018 00:37
== END 2018-12-12 20:42 | disposition home or self-care (01) ==
LOC: FTE 17:06
DX: H66.93 Otitis media, unspecified, bilateral (principal)
CPT/HCPCS: Z7502; Z7610; 99283